=== PATIENT | male | born 1955 | race Caucasian/White ===

== ENCOUNTER 2025-07-08 09:41 | Inpatient (IN) | payer OTHER ==
[2025-07-08 10:19] VITALS: BMI 22.6
[2025-07-08] MEDS ORDERED: guaiFENesin 600 MG TABLET.ER (FP) PO PRN (10:46)
[2025-07-08] MEDS ORDERED: IBUPROFEN 600 MG TABLET (FP) PO PRN (10:46)
[2025-07-08] MEDS ORDERED: ACETAMINOPHEN 325 MG TABLET (FP) PO PRN (10:46)
[2025-07-08] MEDS ORDERED: hydrOXYzine PAMOATE 25 MG CAPSULE (FP) PO PRN (10:46)
[2025-07-08] MEDS ORDERED: LOPERAMIDE HCL 2 MG CAPSULE PO PRN (10:46)
[2025-07-08] MEDS ORDERED: ONDANSETRON *ODT* 4 MG TABLET SL PRN (10:46)
[2025-07-08] MEDS ORDERED: DICYCLOMINE HCL 10 MG CAPSULE PO PRN (10:46)
[2025-07-08] MEDS ORDERED: BENZONATATE 200 MG CAPSULE PO PRN (10:46)
[2025-07-08] MEDS ORDERED: IBUPROFEN 400 MG TABLET (FP) PO PRN (10:46)
[2025-07-08] MEDS ORDERED: BISMUTH SUBSALICYLATE 524 MG/30 ML PO PRN (10:46)
[2025-07-08] MEDS ORDERED: MAG HYDROX/AL HYDROX/SIMETH 30 ML UNIT-DOSE CUP PO PRN (10:46)
[2025-07-08] MEDS ORDERED: BENZOCAINE/MENTHOL (CHLORASEPTIC ) LOZENGE MM PRN (10:46)
[2025-07-08] MEDS ORDERED: METHOCARBAMOL 500 MG TABLET PO PRN (10:46)
[2025-07-08] MEDS ORDERED: MAGNESIUM HYDROX 2400MG/30ML ORAL SUSPENSION 30 ML CUP PO PRN (10:46)
[2025-07-08] MEDS ORDERED: POLYETHYLENE GLYCOL (HEALTHYLAX) 3350 17 GM PACKET PO PRN (10:46)
[2025-07-08] MEDS ORDERED: NALOXONE (NARCAN) HCL 4 MG/0.1 ML SPRAY NS PRN (10:46)
[2025-07-08] MEDS ORDERED: PRENATAL VITAMINS W/ FOLIC ACID TABLET (FP) PO ONE (11:41)
[2025-07-08] MEDS ORDERED: NICOTINE 7 MG/24 HOURS TOPICAL PATCH TD ONE (11:41)
[2025-07-08] MEDS: PRENATAL VITAMINS W/ FOLIC ACID TABLET (FP) PO SCH (11:44)
[2025-07-08] MEDS: NICOTINE 7 MG/24 HOURS TOPICAL PATCH TD SCH (11:44)
[2025-07-08] MEDS: NALTREXONE HCL 50 MG TABLET PO ONE (11:47)
[2025-07-08] MEDS: GABAPENTIN 300 MG CAPSULE PO SCH (13:19)
[2025-07-08] MEDS: MELATONIN 5 MG TABLETS PO SCH (22:22)
[2025-07-08] MEDS: THIAMINE 100 MG TABLET PO SCH (22:22)
[2025-07-08] MEDS: CARVEDILOL 3.125 MG TABLET (FP) PO SCH (22:24)
[2025-07-09 09:18] LABS: MCHC 33.8 g/dl (32.3-36.5); MEAN CELL VOLUME 99.0 fl (79.0-92.2); MEAN PLT VOLUME 10.8 fl (9.4-12.4); RDW 12.4 % (12.2-16.4)
[2025-07-09 09:28] LABS: CO2 30.0 mmol/L (21-32); GLUCOSE,RANDOM 91.0 mg/dL (74-106)
[2025-07-09 09:31] LABS: CREATININE 0.6 mg/dL (0.55-1.3); SGOT/AST 62.0 U/L (15-37); SGPT/ALT 92.0 U/L (13-61)
[2025-07-09 09:33] LABS: TOT PROT 7.1 g/dl (6.4-8.2)
[2025-07-09 09:34] LABS: ALK PHOS 152.0 U/L (45-117)
[2025-07-09] MEDS: TAMSULOSIN HCL 0.4 MG CAP PO SCH (10:59)
[2025-07-09] MEDS: PANTOPRAZOLE 20 MG TABLET PO SCH (11:00)
[2025-07-09] MEDS: traZODone HCL 100 MG TABLET (FP) PO SCH (11:00)
[2025-07-09] MEDS: NALTREXONE HCL 50 MG TABLET PO SCH (11:00)
[2025-07-09] MEDS: FERROUS SO4 325 MG TABLET (FP) PO SCH (11:00)
[2025-07-11 13:13] VITALS: RESP 16
[2025-07-12 09:30] VITALS: BP 123/82; PULSE 73; TEMP 97.3
== END 2025-07-12 11:46 | disposition home or self-care (01) | DRG 897 ==
LOC: YASAS 09:41 → Y3N 12:10
PROVIDERS: ADMIT Allergy & Immunology; ATTEND Allergy & Immunology
PROC: HZ2ZZZZ Detoxification Services for Substance Abuse Treatment (ICD-10-PCS; principal; 2025-07-08)
DX: F10.230 Alcohol dependence with withdrawal, uncomplicated (principal); F41.9 Anxiety disorder, unspecified; I10 Essential (primary) hypertension; K21.9 Gastro-esophageal reflux disease without esophagitis; N40.0 Benign prostatic hyperplasia without lower urinary tract symptoms; D64.9 Anemia, unspecified
CPT/HCPCS: 36415; 80053; 80305; 80307; 85027; 86780; 93005; 93010